=== PATIENT | female | born 1960 | race Caucasian/White ===

== ENCOUNTER → 2022-05-17 | Outpatient (CLI) | payer OTHER ==
--- NOTE | 2022-05-17 17:21 | CT ---
EXAMINATION TYPE: CT hand LT wo con CT DLP: 222.4 mGycm, Automated exposure control for dose reduction was used. DATE OF EXAM: 05/17/2022 5:12 PM COMPARISON: . None CLINICAL INDICATION:Female, 62 years old with history of S62.615A DISP FX OF PROXIMAL PHALANX OF LEFT RING; PHH, Displacement of fx of proximal 4th digit TECHNIQUE: Axial images were obtained of the left hand . Additional coronal and sagittal reformatted images and soft tissue and bone window were obtained for review. 3-D reconstruction was created on a separate workstation. Contrast used: None Oral contrast used: None FINDINGS: There is a partially displaced fracture of the left fourth digit proximal base with intra-a rticular extension to the metacarpal phalangeal joint.. Remainder of the osseous structures are intac t. Is there is mild soft tissue swelling. No radiopaque foreign bodies. No organizing fluid collectio ns. IMPRESSION: Left fourth digit proximal phalanx base fracture with intra-articular extension into the metacarpal p halangeal joint.
== END | disposition home or self-care (01) ==
LOC: RADCTMAIN 16:36
DX: S62.615A Displaced fracture of proximal phalanx of left ring finger, initial encounter for closed fracture (principal)